=== PATIENT | male | born 1990 | race Caucasian/White ===

== ENCOUNTER 2017-07-17 15:35 | Inpatient (IN) | payer OTHER ==
[2017-07-17 16:08] VITALS: BMI 22.8
--- NOTE | 2017-07-17 17:34 | HP ---
Admission [facility] Allergies/Adverse Reactions: Allergies Allergy/AdvReac Type Severity Reaction Status Date / Time No Known Allergies Allergy Verified 07/17/17 17:04 - Ebola screening Have you traveled outside of the country in the last 21 days: No Have you had contact with anyone from an Ebola affected area: No Have you been sick,other than usual withdrawal symptoms: No Do you have a fever: No Patient History - Patient Medical History Hx Anemia: No Hx Asthma: No Hx Chronic Obstructive Pulmonary Disease (COPD): No Hx Cancer: No Hx Cardiac Disorders: No Hx Congestive Heart Failure: No Hx Hypertension: No Hx Hypercholesterolemia: No Hx Pacemaker: No HX Cerebrovascular Accident: No Hx Seizures: No Hx Dementia: No Hx Diabetes: No Hx Gastrointestinal Disorders: No Hx Liver Disease: No Hx Genitourinary Disorders: No Hx Sexually Transmitted Disorders: No Hx Renal Disease (ESRD): No Hx Thyroid Disease: No Hx Human Immunodeficiency Virus (HIV): No Hx Hepatitis C: No Hx Depression: No Hx Suicide Attempt: No Hx Bipolar Disorder: No Hx Schizophrenia: No - Patient Surgical History Past Surgical History: No Hx Neurologic Surgery: No Hx Cataract Extraction: No Hx Cardiac Surgery: No Hx Lung Surgery: No Hx Breast Surgery: No Hx Breast Biopsy: No Hx Abdominal Surgery: No Hx Appendectomy: No Hx Cholecystectomy: No Hx Genitourinary Surgery: No Hx Section: No Hx Orthopedic Surgery: No Anesthesia Reaction: No - PPD History Previous Implant?: Yes Documented Results: Negative w/o proof Implanted On Prior [facility] Admission?: Yes Date: 06/02/16 - Smoking Cessation Smoking history: Current every day smoker Have you smoked in the past 12 months: Yes Aproximately how many cigarettes per day: 10 Cigars Per Day: 0 Hx Chewing Tobacco Use: No Initiated information on smoking cessation: Yes - Substances Abused Alcohol Route: Oral Frequency: Daily Amount used: 750ML Age of first use: 6 Date of Last Use: 07/16/17 Heroin Route: Injection Frequency: Daily Amount used: 1 BAG Age of first use: 17 Date of Last Use: 07/16/17 Cocaine Route: Injection Frequency: Daily Amount used: 1 BAG Age of first use: 17 Date of Last Use: 07/16/17 Admission Physical Exam S - Vital Signs Vital Signs: Vital Signs - 24 hr 07/17/17 16:03 Temperature 98.3 F Pulse Rate 81 Respiratory 18 Rate Blood Pressure 112/83 - Diagnostic (1) Alcohol dependence with uncomplicated withdrawal Current Visit: Yes Status: Chronic (2) Cocaine dependence Current Visit: Yes Status: Chronic Qualifiers: Substance use status: uncomplicated Qualified Code(s): F14.20 - Cocaine dependence, uncomplicated (3) Marijuana dependence Current Visit: Yes Status: Chronic BHS Breath Alcohol Content Breath Alcohol Content: 0 Urine Drug Screen - Results Drug Screen Negative: No Urine Drug Screen Results: THC-Marijuana, NANDO-Cocaine, OPI-Opiates, MTD- Methadone
--- NOTE | 2017-07-17 20:36 | HP ---
CIWA Score - CIWA Score Nausea/Vomitin-Mild Nausea/No Vomiting Muscle Tremors: 4-Moderate,w/Arms Extend Anxiety: 4-Mod. Anxious/Guarded Agitation: 4-Moderately Restless Paroxysmal Sweats: 1-Minimal Palms Moist Orientation: 0-Oriented Tacttile Disturbances: 0-None Auditory Disturbances: 0-None Visual Disturbances: 0-None Headache: 1-Very Mild CIWA-Ar Total Score: 15 Admission ROS BHS - HPI Chief Complaint: WITHDRAWAL SX Allergies/Adverse Reactions: Allergies Allergy/AdvReac Type Severity Reaction Status Date / Time No Known Allergies Allergy Verified 07/17/17 17:04 History of Present Illness: 27 YEARS OLD MALE WITH LONG HISTORY OF ALCOHOL DEPENDENCE HAS DEPRESSION IS ADMITTED TO DETOX Exam Limitations: No Limitations - Ebola screening Have you traveled outside of the country in the last 21 days: No Have you had contact with anyone from an Ebola affected area: No Have you been sick,other than usual withdrawal symptoms: No Do you have a fever: No - Review of Systems Constitutional: Loss of Appetite, Changes in sleep, Unintentional Wgt. Loss, Unexplained wgt Loss EENT: reports: No Symptoms Reported Respiratory: reports: No Symptoms reported Cardiac: reports: No Symptoms Reported GI: reports: Nausea, Poor Appetite, Abdominal cramping : reports: No Symptoms Reported Musculoskeletal: reports: Back Pain, Joint Pain, Muscle Pain, Neck Pain Integumentary: reports: Change in Color (IV COCAINE INNER ELBOWS) Neuro: reports: Tremors Endocrine: reports: No Symptoms Reported Hematology: reports: No Symptoms Reported Psychiatric: reports: Judgement Intact, Depressed Other Systems: Reviewed and Negative Patient History - Patient Medical History Hx Anemia: No Hx Asthma: No Hx Chronic Obstructive Pulmonary Disease (COPD): No Hx Cancer: No Hx Cardiac Disorders: No Hx Congestive Heart Failure: No Hx Hypertension: No Hx Hypercholesterolemia: No Hx Pacemaker: No HX Cerebrovascular Accident: No Hx Seizures: No Hx Dementia: No Hx Diabetes: No Hx Gastrointestinal Disorders: No Hx Liver Disease: No Hx Genitourinary Disorders: No Hx Sexually Transmitted Disorders: No Hx Renal Disease (ESRD): No Hx Thyroid Disease: No Hx Human Immunodeficiency Virus (HIV): No Hx Hepatitis C: No Hx Depression: Yes Hx Suicide Attempt: No Hx Bipolar Disorder: No Hx Schizophrenia: No - Patient Surgical History Past Surgical History: No Hx Neurologic Surgery: No Hx Cataract Extraction: No Hx Cardiac Surgery: No Hx Lung Surgery: No Hx Breast Surgery: No Hx Breast Biopsy: No Hx Abdominal Surgery: No Hx Appendectomy: No Hx Cholecystectomy: No Hx Genitourinary Surgery: No Hx Orthopedic Surgery: No - PPD History Previous Implant?: Yes Documented Results: Negative w/o proof Implanted On Prior [facility] Admission?: Yes Date: 06/02/16 PPD to be Administered?: Yes - Smoking Cessation Smoking history: Never smoked Have you smoked in the past 12 months: No Aproximately how many cigarettes per day: 0 Cigars Per Day: 0 Hx Chewing Tobacco Use: No Initiated information on smoking cessation: No - Substance & Tx. History Hx Alcohol Use: Yes Hx Substance Use: Yes Substance Use Type: Alcohol, Cocaine, Marijuana Hx Substance Use Treatment: Yes (2015 [facility]) - Substances Abused Alcohol Route: Oral Frequency: Daily Amount used: 750ML VODKA Age of first use: 19 Date of Last Use: 07/16/17 Heroin Route: Injection Frequency: Daily Amount used: 3 BAGS Age of first use: 17 Date of Last Use: 07/14/17 Cocaine Route: Injection Frequency: Daily Amount used: 1 BAG Age of first use: 17 Date of Last Use: 07/16/17 Family Disease History - Family Disease History Family Disease History: Other: Father (NO CONTACT), Mother (NO CONTACT), Brother (NO CONTACT), Sister (NO CONTACT) Admission Physical Exam BHS - Vital Signs Vital Signs: Vital Signs - 24 hr 07/17/17 07/17/17 16:03 17:37 Temperature 98.3 F 97.7 F Pulse Rate 81 80 Respiratory 18 18 Rate Blood Pressure 112/83 112/75 - Physical General Appearance: Yes: Appropriately Dressed, Mild Distress, Thin, Tremorous, Irritable, Sweating, Anxious HEENTM: Yes: Hearing grossly Normal, Normocephalic, Normal Voice Respiratory: Yes: Chest Non-Tender, Lungs Clear, Normal Breath Sounds, No Respiratory Distress, No Accessory Muscle Use Neck: Yes: Supple, Trachea in good position Breast: Yes: Breasts Symetrical Cardiology: Yes: Regular Rhythm, Regular Rate, S1, S2 Abdominal: Yes: Non Tender, Soft, Decreased BS Genitourinary: Yes: Within Normal Limits Back: Yes: Normal Inspection Musculoskeletal: Yes: full range of Motion, Gait Steady, Back pain, Muscle Pain Extremities: Yes: Normal Inspection (IV INNER ELBOWS), Normal Range of Motion, Non-Tender, Tremors Neurological: Yes: Alert, Motor Strength 5/5, Normal Response, Depressed Affect Integumentary: Yes: Warm, Track [place] Lymphatic: Yes: Within Normal Limits - Diagnostic (1) Methadone maintenance therapy patient Current Visit: Yes Status: Chronic Comment: 130 MG PO VERIFICAITON PENDING (2) Depression (emotion) Current Visit: Yes Status: Suspected Qualifiers: Depression Type: dysthymia Qualified Code(s): F34.1 - Dysthymic disorder (3) Alcohol dependence with uncomplicated withdrawal Current Visit: Yes Status: Acute (4) Weight loss Current Visit: Yes Status: Acute Cleared for Admission [facility] - Detox or Rehab [facility] Level of Care: Medically Managed Detox Regimen/Protocol: Librium [facility] Breath Alcohol Content Breath Alcohol Content: 0 Urine Drug Screen - Results Drug Screen Negative: No Urine Drug Screen Results: THC-Marijuana, NANDO-Cocaine, OPI-Opiates, MTD- Methadone
[2017-07-17] MEDS ORDERED: MAGNESIUM HYDROX 2400MG/30ML ORAL SUSPENSION 30 ML CUP PO PRN (20:42)
[2017-07-17] MEDS ORDERED: MAG HYDROX/AL HYDROX/SIMETH 30 ML UNIT-DOSE CUP PO PRN (20:42)
[2017-07-17] MEDS ORDERED: guaiFENesin/D-METHORPHAN HB 10 ML UNIT-DOSE CUPS PO PRN (20:42)
[2017-07-17] MEDS ORDERED: LOPERAMIDE HCL 2 MG CAPSULE PO PRN (20:42)
[2017-07-17] MEDS ORDERED: P-EPHED 60MG/TRIPROLIDI 2.5MG TABLET PO PRN (20:42)
[2017-07-17] MEDS ORDERED: ACETAMINOPHEN 325 MG TABLET (FP) PO PRN (20:42)
[2017-07-17] MEDS ORDERED: MENTHOL/PHENOL 1 EACH UD MM PRN (20:42)
[2017-07-17] MEDS ORDERED: MAGNESIUM CITRATE 300 ML BOTTLE PO PRN (20:42)
[2017-07-17] MEDS: chlordiazePOXIDE HCL 25 MG CAPSULE PO SCH (22:22)
[2017-07-17] MEDS: THIAMINE HCL 100 MG TABLET (FP) PO SCH (22:22)
[2017-07-17 23:23] LABS: URINE APPEARANCE SLCLOUDY; URINE BILIRUBIN NEGATIVE (NEGATIVE); URINE BLOOD NEGATIVE (NEGATIVE); URINE COLOR YELLOW; URINE GLUCOSE (UA) NEGATIVE (NEGATIVE); URINE KETONE NEGATIVE (NEGATIVE); URINE LEUK ESTERASE TRACE (NEGATIVE); URINE NITRITE NEGATIVE (NEGATIVE); URINE PROTEIN NEGATIVE (NEGATIVE)
[2017-07-17 23:33] LABS: URINE MUCUS FEW; URINE RBC 4 /hpf (0-3); URINE WBC 3 /hpf (3-5)
[2017-07-18] MEDS: chlordiazePOXIDE HCL 25 MG CAPSULE PO SCH ×4 (05:58→23:09)
[2017-07-18] MEDS ORDERED: METHADONE HCL 10 MG TABLET PO ONE (08:30)
[2017-07-18] MEDS ORDERED: METHADONE 120 MG, METHADONE 30 MG PO ONE (10:00)
[2017-07-18] MEDS ORDERED: METHADONE HCL 10 MG TABLET ONE (10:04)
[2017-07-18] MEDS ORDERED: METHADONE HCL 40 MG DISPERSABLE TABLET ONE (10:05)
[2017-07-18 10:11] LABS: MCH 28.6 pg (25.7-33.7); MCHC 32.3 g/dl (32.0-35.9); MEAN CELL VOLUME 88.7 fl (80-96); MEAN PLT VOLUME 7.9 fl (7.5-11.1); PLATELET COUNT 253 K/MM3 (134-434); RDW 13.9 % (11.9-15.9); WHITE BLOOD COUNT 7.5 K/mm3 (4.0-10.0)
[2017-07-18 10:15] LABS: URINE LEUK ESTERASE Negative (NEGATIVE)
[2017-07-18] MEDS: PRENATAL VITAMINS W/ FOLIC ACID TABLET (FP) PO SCH (10:22)
[2017-07-18 10:31] LABS: ALBUMIN 3.2 g/dl (3.4-5.0); ALK PHOS 83 U/L (45-117); ANION GAP 9 (8-16); BILIRUBIN,TOTAL 0.5 mg/dL (0.2-1.0); CO2 27 mmol/L (21-32); CREATININE 0.9 mg/dL (0.7-1.3); GLUCOSE,RANDOM 83 mg/dL (74-106); SGOT/AST 42 U/L (15-37); SGPT/ALT 40 U/L (12-78); TOT PROT 6.3 g/dl (6.4-8.2)
--- NOTE | 2017-07-18 11:18 | CONSULT ---
[facility] Psychiatric Consult - Data Date of interview: 07/18/17 Admission source: [facility] Identifying data: Readmission to [facility] for this 27 y/o male seeking detox treatment on for heroin,alcohol,marijuana and cocaine ( crack) dependence.Patient is single without children,homeless,currently unemployed and deprived of any financial support. Substance Abuse History: Confirmed by patient in this session.See current [facility] report for details : Smoking history: Never smoked. Have you smoked in the past 12 months: No. Aproximately how many cigarettes per day: 0. Cigars Per Day: 0. Hx Chewing Tobacco Use: No. Initiated information on smoking cessation : No. - Substance & Tx. History. Hx Alcohol Use: Yes. Hx Substance Use: Yes. Substance Use Type: Alcohol, Cocaine, Marijuana. Hx Substance Use Treatment: Yes (2015 [facility]). - Substances Abused. Alcohol. Route: Oral. Frequency: Daily. Amount used: 750ML VODKA. Age of first use: 19. Date of Last Use: 07/16/17. Heroin. Route: Injection. Frequency: Daily. Amount used: 3 BAGS. Age of first use: 17. Date of Last Use: 07/14/17. Cocaine. Route: Injection. Frequency: Daily. Amount used: 1 BAG. Age of first use: 17. Date of Last Use: 07/16/17 Medical History: Patient endorses good general health. Psychiatric History: History of multiple psychiatric hospitalizations (since age 18).Reportedly diagnosed with " bipolar disorder and schizophrenia ".Mr Roper is known to [facility] in [facility]) and [facility] in [facility] ([facility]Patient used to be prescribed geodon,risperdal,lorazepam,celexa and seroquel.Dropped out of OPD care more than six months ago.He declines to reconsider his decision to abstain from psychotropic medications.No reported history of suicide attempts.Currrently on methadone maintenance (150 mg/day). Physical/Sexual Abuse/Trauma History: Patient denies. Additional Comment: Urine Drug Screen Results: THC-Marijuana, NANDO-Cocaine, OPI- Opiates, MTD-Methadone.Noted. Mental Status Exam - Mental Status Exam Alert and Oriented to: Time, Place, Person Cognitive Function: Good Patient Appearance: Well Groomed Mood: Nervous, Withdrawn Affect: Mood Congruent Patient Behavior: Fatigued, Appropriate, Cooperative Speech Pattern: Clear, Appropriate Voice Loudness: Normal Thought Process: Goal Oriented Thought Disorder: Not Present Hallucinations: Denies Suicidal Ideation: Denies Homicidal Ideation: Denies Insight/Judgement: Poor Sleep: Poorly, Difficulty falling asleep Appetite: Good Muscle strength/Tone: Normal Gait/Station: Normal Psychiatric Findings - Problem List ([place] 1, 2,3) (1) Opioid dependence on agonist therapy Current Visit: Yes Status: Acute (2) Alcohol dependence with uncomplicated withdrawal Current Visit: Yes Status: Acute (3) Cocaine dependence Current Visit: Yes Status: Acute Qualifiers: Substance use status: uncomplicated Qualified Code(s): F14.20 - Cocaine dependence, uncomplicated (4) Marijuana dependence Current Visit: Yes Status: Acute (5) Substance induced mood disorder Current Visit: Yes Status: Acute (6) Schizoaffective disorder Current Visit: No Status: Chronic Comment: Self-report.Non-compliance with OPD care + medications. (7) Insomnia Current Visit: Yes Status: Acute - Initial Treatment Plan Initial Treatment Plan: Psychoeducation.Detoxification.Sleep hygiene discussed in session.Also discussed : risks of non-adherence to medications (relapses, rehospitalizations,suicide attempts,increased morbidity,behavioral dyscontrol) and benefits of treatment (wellness,stability,optimal level of functioning) .Observation.
--- NOTE | 2017-07-18 12:06 | PN ---
S CIWA - CIWA Score Nausea/Vomitin-Int. Nausea w/Dry Heave Muscle Tremors: 4-Moderate,w/Arms Extend Anxiety: 5 Agitation: 2 Paroxysmal Sweats: 3 Orientation: 0-Oriented Tacttile Disturbances: 2-Mild Itch/Numbness/Burn Auditory Disturbances: 0-None Visual Disturbances: 0-None Headache: 0-None Present CIWA-Ar Total Score: 20 BHS Progress Note (SOAP) Subjective: Nausea, Tremors, Sweating, Fatigue, Body Aches. Objective: PT. A & O X 3, OBSERVED AMBULATING ON UNIT. NO ACUTE DISTRESS. 07/18/17 12:05 Vital Signs Temperature 98.1 F 07/18/17 06:05 Pulse Rate 87 07/18/17 09:30 Respiratory Rate 20 07/18/17 09:30 Blood Pressure 112/74 07/18/17 09:30 O2 Sat by Pulse Oximetry (%) Laboratory Tests 07/17/17 07/18/17 07/18/17 23:10 07:00 07:00 WBC 7.5 D RBC 4.71 Hgb 13.5 Hct 41.7 MCV 88.7 MCH 28.6 MCHC 32.3 RDW 13.9 Plt Count 253 D MPV 7.9 Sodium 145 Potassium 3.5 Chloride 109 H Carbon Dioxide 27 Anion Gap 9 BUN 11 Creatinine 0.9 Creat Clearance w eGFR > 60 Random Glucose 83 Calcium 8.0 L Total Bilirubin 0.5 AST 42 H D ALT 40 Alkaline Phosphatase 83 Total Protein 6.3 L Albumin 3.2 L D Urine Color Yellow Urine Appearance Slcloudy Urine pH 6.0 Ur Specific [place] 1.028 Urine Protein Negative Urine Glucose (UA) Negative Urine Ketones Negative Urine Blood Negative Urine Nitrite Negative Urine Bilirubin Negative Urine Urobilinogen 2.0 Ur Leukocyte Esterase Negative Urine WBC (Auto) 3 Urine RBC (Auto) 4 Urine Mucus Few LABS NOTED. RPR RESULT PENDING. 07/18/17 12:06 Assessment: 07/18/17 12:05 WITHDRAWAL SYMPTOMS. Plan: CONTINUE DETOX. INCREASE DAILY PO FLUID INTAKE.
[2017-07-18] MEDS: chlordiazePOXIDE HCL 25 MG CAPSULE PO PRN (15:24)
--- NOTE | 2017-07-18 16:36 | PN ---
[facility] Progress Note Note: Patient reporting several small blisters on bilateral hands that he reports that he has been "picking at and squeezing pus out of for the last few hours." Several small blister noted on bilateral hands. Mild erythema and swelling noted at affected sites; however, no bleeding or unusual discharge noted at time of visual assessment of hands. Bactrim DS PO BID ordered as prophylaxis. Also Bacitracin to be applied to affected areas and covered with band aids BID. Clonidine, 0.1 mg PO X 1 ordered for Detox symptoms, including tremors. Nicol King NP
[2017-07-18] MEDS ORDERED: cloNIDine HCL 0.1 MG TABLET PO ONE (17:15)
--- NOTE | 2017-07-18 19:02 | EKG ---
Test Reason : Blood Pressure : / mmHG Vent. Rate : 069 BPM Atrial Rate : 069 BPM P-R Int : 140 ms QRS Dur : 098 ms QT Int : 422 ms P-R-T Axes : 056 078 028 degrees QTc Int : 452 ms NORMAL SINUS RHYTHM NORMAL ECG WHEN COMPARED WITH ECG OF 17-JUL-2017 22:46, T WAVE INVERSION NO LONGER EVIDENT IN ANTEROLATERAL LEADS Confirmed by MD LAVELL, MIGUEL ([id number]) on 07/18/2017 7:01:31 PM Referred By: Confirmed By:MIGUEL MONTE MD
[2017-07-18] MEDS: IBUPROFEN 400 MG TABLET (FP) PO PRN (23:05)
[2017-07-18] MEDS: SULFAMETHOXAZOLE/TRIMETHOPRIM 800MG/160MG D.S. TABLET PO SCH (23:09)
[2017-07-18] MEDS: THIAMINE HCL 100 MG TABLET (FP) PO SCH (23:09)
[2017-07-18] MEDS: BACITRACIN 0.9 GM PACKET TP SCH (23:09)
[2017-07-19] MEDS ORDERED: METHADONE HCL 10 MG TABLET ONE (04:36)
[2017-07-19] MEDS ORDERED: METHADONE HCL 40 MG DISPERSABLE TABLET ONE (04:37)
[2017-07-19] MEDS: chlordiazePOXIDE HCL 25 MG CAPSULE PO SCH ×3 (05:21→17:55)
[2017-07-19] MEDS ORDERED: METHADONE HCL 10 MG TABLET PO SCH (06:00)
[2017-07-19] MEDS ORDERED: METHADONE 120 MG, METHADONE 30 MG PO SCH (06:00)
[2017-07-19] MEDS: chlordiazePOXIDE HCL 25 MG CAPSULE PO PRN ×3 (08:58→20:48)
--- NOTE | 2017-07-19 09:59 | EKG ---
Test Reason : Blood Pressure : / mmHG Vent. Rate : 087 BPM Atrial Rate : 087 BPM P-R Int : 132 ms QRS Dur : 098 ms QT Int : 368 ms P-R-T Axes : 047 073 010 degrees QTc Int : 442 ms NORMAL SINUS RHYTHM T WAVE ABNORMALITY, CONSIDER ANTEROLATERAL ISCHEMIA ABNORMAL ECG NO PREVIOUS ECGS AVAILABLE Confirmed by MARCOS TESFAYE MD ([id number]) on 07/19/2017 9:58:37 AM Referred By: Confirmed By:MARCOS TESFAYE MD
[2017-07-19] MEDS: PRENATAL VITAMINS W/ FOLIC ACID TABLET (FP) PO SCH (10:29)
[2017-07-19] MEDS: SULFAMETHOXAZOLE/TRIMETHOPRIM 800MG/160MG D.S. TABLET PO SCH ×2 (10:29→22:27)
[2017-07-19] MEDS: BACITRACIN 0.9 GM PACKET TP SCH ×2 (10:29→22:27)
[2017-07-19] MEDS: CYCLOBENZAPRINE HCL 10 MG TABLET (FP) PO PRN ×2 (12:07→22:27)
--- NOTE | 2017-07-19 12:35 | PN ---
[facility] CIWA - CIWA Score Nausea/Vomitin-No Nausea/No Vomiting Muscle Tremors: 6 Anxiety: 5 Agitation: 4-Moderately Restless Paroxysmal Sweats: 2 Orientation: 0-Oriented Tacttile Disturbances: 2-Mild Itch/Numbness/Burn Auditory Disturbances: 0-None Visual Disturbances: 0-None Headache: 0-None Present CIWA-Ar Total Score: 19 BHS Progress Note (SOAP) Subjective: Constipation, Tremors, Anxious, Body Aches. Objective: PT. A & O X 3, OBSERVED AMBULATING ON UNIT. NO ACUTE DISTRESS. 07/19/17 12:33 Vital Signs Temperature 97.5 F L 07/19/17 09:18 Pulse Rate 85 07/19/17 09:18 Respiratory Rate 18 07/19/17 09:18 Blood Pressure 126/76 07/19/17 09:18 O2 Sat by Pulse Oximetry (%) Laboratory Tests 07/17/17 07/18/17 07/18/17 23:10 07:00 07:00 WBC 7.5 D RBC 4.71 Hgb 13.5 Hct 41.7 MCV 88.7 MCH 28.6 MCHC 32.3 RDW 13.9 Plt Count 253 D MPV 7.9 Sodium 145 Potassium 3.5 Chloride 109 H Carbon Dioxide 27 Anion Gap 9 BUN 11 Creatinine 0.9 Creat Clearance w eGFR > 60 Random Glucose 83 Calcium 8.0 L Total Bilirubin 0.5 AST 42 H D ALT 40 Alkaline Phosphatase 83 Total Protein 6.3 L Albumin 3.2 L D Urine Color Yellow Urine Appearance Slcloudy Urine pH 6.0 Ur Specific [place] 1.028 Urine Protein Negative Urine Glucose (UA) Negative Urine Ketones Negative Urine Blood Negative Urine Nitrite Negative Urine Bilirubin Negative Urine Urobilinogen 2.0 Ur Leukocyte Esterase Negative Urine WBC (Auto) 3 Urine RBC (Auto) 4 Urine Mucus Few RPR Titer 07/18/17 07:00 WBC RBC Hgb Hct MCV MCH MCHC RDW Plt Count MPV Sodium Potassium Chloride Carbon Dioxide Anion Gap BUN Creatinine Creat Clearance w eGFR Random Glucose Calcium Total Bilirubin AST ALT Alkaline Phosphatase Total Protein Albumin Urine Color Urine Appearance Urine pH Ur Specific [place] Urine Protein Urine Glucose (UA) Urine Ketones Urine Blood Urine Nitrite Urine Bilirubin Urine Urobilinogen Ur Leukocyte Esterase Urine WBC (Auto) Urine RBC (Auto) Urine Mucus RPR Titer Nonreactive LABS NOTED. Assessment: 07/19/17 12:33 WITHDRAWAL SYMPTOMS. Plan: CONTINUE DETOX. PRN MOM FOR CONSTIPATION. PRN FLEXERIL FOR BODY ACHES / MUSCLE SPASMS. PRN LIBRIUM FOR ANXIETY. INCREASE DAILY PO FLUID INTAKE.
[2017-07-19] MEDS: chlordiazePOXIDE 5 MG CAPSULE PO SCH (22:27)
[2017-07-19] MEDS: THIAMINE HCL 100 MG TABLET (FP) PO SCH (22:27)
[2017-07-20] MEDS: chlordiazePOXIDE 5 MG CAPSULE PO SCH ×3 (05:56→18:09)
[2017-07-20] MEDS: chlordiazePOXIDE HCL 25 MG CAPSULE PO PRN ×2 (06:37→14:50)
[2017-07-20] MEDS ORDERED: METHADONE HCL 10 MG TABLET ONE (08:16)
[2017-07-20] MEDS ORDERED: METHADONE HCL 40 MG DISPERSABLE TABLET ONE (08:17)
[2017-07-20] MEDS ORDERED: METHADONE 120 MG, METHADONE 30 MG PO SCH (10:00)
[2017-07-20] MEDS: SULFAMETHOXAZOLE/TRIMETHOPRIM 800MG/160MG D.S. TABLET PO SCH ×2 (10:56→22:46)
[2017-07-20] MEDS: PRENATAL VITAMINS W/ FOLIC ACID TABLET (FP) PO SCH (10:56)
[2017-07-20] MEDS: BACITRACIN 0.9 GM PACKET TP SCH ×2 (10:56→22:46)
[2017-07-20] MEDS: IBUPROFEN 400 MG TABLET (FP) PO PRN (12:03)
--- NOTE | 2017-07-20 14:58 | PN ---
BHS Progress Note (SOAP) Subjective: Anxious, Tremors, Body Aches, Interrupted Sleep. Objective: PT. A & O X 3, OBSERVED AMBULATING ON UNIT. NO ACUTE DISTRESS. 07/20/17 14:57 Vital Signs Temperature 97.7 F 07/20/17 14:11 Pulse Rate 68 07/20/17 14:11 Respiratory Rate 20 07/20/17 14:11 Blood Pressure 110/68 07/20/17 14:11 O2 Sat by Pulse Oximetry (%) Laboratory Tests 07/17/17 07/18/17 07/18/17 23:10 07:00 07:00 WBC 7.5 D RBC 4.71 Hgb 13.5 Hct 41.7 MCV 88.7 MCH 28.6 MCHC 32.3 RDW 13.9 Plt Count 253 D MPV 7.9 Sodium 145 Potassium 3.5 Chloride 109 H Carbon Dioxide 27 Anion Gap 9 BUN 11 Creatinine 0.9 Creat Clearance w eGFR > 60 Random Glucose 83 Calcium 8.0 L Total Bilirubin 0.5 AST 42 H D ALT 40 Alkaline Phosphatase 83 Total Protein 6.3 L Albumin 3.2 L D Urine Color Yellow Urine Appearance Slcloudy Urine pH 6.0 Ur Specific [place] 1.028 Urine Protein Negative Urine Glucose (UA) Negative Urine Ketones Negative Urine Blood Negative Urine Nitrite Negative Urine Bilirubin Negative Urine Urobilinogen 2.0 Ur Leukocyte Esterase Negative Urine WBC (Auto) 3 Urine RBC (Auto) 4 Urine Mucus Few RPR Titer Hepatitis C Antibody 07/18/17 07/19/17 07:00 15:00 WBC RBC Hgb Hct MCV MCH MCHC RDW Plt Count MPV Sodium Potassium Chloride Carbon Dioxide Anion Gap BUN Creatinine Creat Clearance w eGFR Random Glucose Calcium Total Bilirubin AST ALT Alkaline Phosphatase Total Protein Albumin Urine Color Urine Appearance Urine pH Ur Specific [place] Urine Protein Urine Glucose (UA) Urine Ketones Urine Blood Urine Nitrite Urine Bilirubin Urine Urobilinogen Ur Leukocyte Esterase Urine WBC (Auto) Urine RBC (Auto) Urine Mucus RPR Titer Nonreactive Hepatitis C Antibody 0.2 LABS NOTED. Assessment: 07/20/17 14:57 WITHDRAWAL SYMPTOMS. Plan: CONTINUE DETOX.
[2017-07-20] MEDS: THIAMINE HCL 100 MG TABLET (FP) PO SCH (22:46)
[2017-07-20] MEDS: chlordiazePOXIDE HCL 10 MG CAPSULE PO SCH (22:46)
[2017-07-21 06:35] VITALS: BP 93/70; PULSE 75; TEMP 98.2
[2017-07-21] MEDS: chlordiazePOXIDE HCL 10 MG CAPSULE PO SCH (06:36)
[2017-07-21] MEDS ORDERED: METHADONE HCL 40 MG DISPERSABLE TABLET ONE (08:20)
[2017-07-21] MEDS ORDERED: METHADONE HCL 10 MG TABLET ONE (08:20)
[2017-07-21] MEDS: IBUPROFEN 400 MG TABLET (FP) PO PRN (08:40)
[2017-07-21] MEDS: BACITRACIN 0.9 GM PACKET TP SCH (09:24)
[2017-07-21] MEDS: SULFAMETHOXAZOLE/TRIMETHOPRIM 800MG/160MG D.S. TABLET PO SCH (09:24)
[2017-07-21] MEDS: PRENATAL VITAMINS W/ FOLIC ACID TABLET (FP) PO SCH (09:24)
[2017-07-21] MEDS ORDERED: METHADONE 120 MG, METHADONE 30 MG PO SCH (10:00)
--- NOTE | 2017-07-21 12:47 | DS ---
[facility] Detox Discharge Summary Admission Date: 07/17/17 Discharge Date: 07/21/17 - History Present History: Alcohol Dependence, Cannabis Dependence, Cocaine Dependence, Opioid Dependence, MMTP Additional Comments: PATIENT GOING HOME, WILL RETURN TO [facility] ([place] , [place] FOR AFTERCARE. PATIENT ADVISED TO OBTAIN SERGEANT OF OFFICERS AT [facility] ( [place], [place] TO GO FOR MEDICAL EVALUATION AND FOR WOUNDS AFFECTING BILATERAL HANDS AFTER DISCHARGE FROM DETOX. PRESCRIPTION FOR PO ANTIBIOTIC (BACTRIM DS) AND FOR TOPICAL ANTIBIOTIC (BACITRACIN) SENT TO PATIENT'S PHARMACY ([facility] , [place], [place] FOR AFTERCARE. PATIENT ALSO ADVISED TO CONSIDER LOCAL 12-STEP / NA OUTPATIENT SUPPORT GROUPS FOR AFTERCARE. PATIENT WAS DISCHARGED FROM DETOX UNIT IN STABLE MEDICAL CONDITION. Pertinent Past History: Depression, MMTP, Weight Loss, Insomnia, Schizoaffective Disorder. - Physical Exam Results Vital Signs: Vital Signs Temperature 98.2 F 07/21/17 06:35 Pulse Rate 75 07/21/17 06:35 Respiratory Rate 16 07/21/17 06:35 Blood Pressure 93/70 07/21/17 06:35 O2 Sat by Pulse Oximetry (%) Pertinent Admission Physical Exam Findings: WITHDRAWAL SYMPTOMS. Laboratory Tests 07/17/17 07/18/17 07/18/17 23:10 07:00 07:00 WBC 7.5 D RBC 4.71 Hgb 13.5 Hct 41.7 MCV 88.7 MCH 28.6 MCHC 32.3 RDW 13.9 Plt Count 253 D MPV 7.9 Sodium 145 Potassium 3.5 Chloride 109 H Carbon Dioxide 27 Anion Gap 9 BUN 11 Creatinine 0.9 Creat Clearance w eGFR > 60 Random Glucose 83 Calcium 8.0 L Total Bilirubin 0.5 AST 42 H D ALT 40 Alkaline Phosphatase 83 Total Protein 6.3 L Albumin 3.2 L D Urine Color Yellow Urine Appearance Slcloudy Urine pH 6.0 Ur Specific [place] 1.028 Urine Protein Negative Urine Glucose (UA) Negative Urine Ketones Negative Urine Blood Negative Urine Nitrite Negative Urine Bilirubin Negative Urine Urobilinogen 2.0 Ur Leukocyte Esterase Negative Urine WBC (Auto) 3 Urine RBC (Auto) 4 Urine Mucus Few RPR Titer Hepatitis C Antibody 07/18/17 07/19/17 07:00 15:00 WBC RBC Hgb Hct MCV MCH MCHC RDW Plt Count MPV Sodium Potassium Chloride Carbon Dioxide Anion Gap BUN Creatinine Creat Clearance w eGFR Random Glucose Calcium Total Bilirubin AST ALT Alkaline Phosphatase Total Protein Albumin Urine Color Urine Appearance Urine pH Ur Specific [place] Urine Protein Urine Glucose (UA) Urine Ketones Urine Blood Urine Nitrite Urine Bilirubin Urine Urobilinogen Ur Leukocyte Esterase Urine WBC (Auto) Urine RBC (Auto) Urine Mucus RPR Titer Nonreactive Hepatitis C Antibody 0.2 LABS NOTED. - Treatment Hospital Course: Detox Protocol Followed, Detoxed Safely, Responded well, Discharged Condition Good Patient has Accepted a Rehab Referral to: PT RETURNING TO [facility] ([place], [place] - Medication Discharge Medications: Ambulatory Orders Bacitracin - [Bacitracin Topical Ointment -] 1 applic TP BID #1 tube 07/21/17 Sulfamethoxazole/Trimethoprim [Bactrim Ds -] 1 tab PO BID 7 Days #14 tablet - Diagnosis (1) Alcohol dependence with uncomplicated withdrawal Status: Acute (2) Methadone maintenance therapy patient Status: Chronic (3) Depression (emotion) Status: Suspected Qualifiers: Depression Type: dysthymia Qualified Code(s): F34.1 - Dysthymic disorder (4) Weight loss Status: Acute (5) Insomnia Status: Acute Qualifiers: Insomnia type: unspecified Qualified Code(s): G47.00 - Insomnia, unspecified (6) Substance induced mood disorder Status: Acute (7) Schizoaffective disorder Status: Chronic Qualifiers: Schizoaffective disorder type: unspecified Qualified Code(s): F25.9 - Schizoaffective disorder, unspecified (8) Cocaine dependence Status: Acute Qualifiers: Substance use status: uncomplicated Qualified Code(s): F14.20 - Cocaine dependence, uncomplicated (9) Marijuana dependence Status: Acute - AMA Did Patient Leave Against Medical Advice: No
== END 2017-07-21 09:38 | disposition home or self-care (01) | DRG 773 ==
LOC: YASAS 15:35 → Y3N 17:16
PROVIDERS: ADMIT Internal Medicine; ATTEND Internal Medicine
PROC: HZ2ZZZZ Detoxification Services for Substance Abuse Treatment (ICD-10-PCS; principal; 2017-07-17)
DX: F10.230 Alcohol dependence with withdrawal, uncomplicated (principal); F11.20 Opioid dependence, uncomplicated; F14.20 Cocaine dependence, uncomplicated; F12.20 Cannabis dependence, uncomplicated; F34.1 Dysthymic disorder; F19.24 Other psychoactive substance dependence with psychoactive substance-induced mood disorder; F25.9 Schizoaffective disorder, unspecified; G47.00 Insomnia, unspecified; Z87.898 Personal history of other specified conditions; S60.522A Blister (nonthermal) of left hand, initial encounter; S60.521A Blister (nonthermal) of right hand, initial encounter; X58.XXXA Exposure to other specified factors, initial encounter; Y93.9 Activity, unspecified; Y92.9 Unspecified place or not applicable
CPT/HCPCS: 36415; 80053; 81003; 81015; 85027; 86593; 86803; 93005; 93010

== ENCOUNTER 2023-07-25 13:13 | Inpatient (IN) | payer OTHER ==
[2023-07-25 16:11] VITALS: BMI 23.6
[2023-07-25] MEDS ORDERED: LOPERAMIDE HCL 2 MG CAPSULE PO PRN (17:27)
[2023-07-25] MEDS ORDERED: IBUPROFEN 600 MG TABLET (FP) PO PRN (17:27)
[2023-07-25] MEDS ORDERED: BENZONATATE 200 MG CAPSULE PO PRN (17:27)
[2023-07-25] MEDS ORDERED: BISMUTH SUBSALICYLATE 524 MG/30 ML PO PRN (17:27)
[2023-07-25] MEDS ORDERED: METHOCARBAMOL 500 MG TABLET PO PRN (17:27)
[2023-07-25] MEDS ORDERED: NALOXONE HCL (KLOXXADO) 8 MG SPRAY NS PRN (17:27)
[2023-07-25] MEDS ORDERED: MAGNESIUM HYDROX 2400MG/30ML ORAL SUSPENSION 30 ML CUP PO PRN (17:27)
[2023-07-25] MEDS ORDERED: ONDANSETRON *ODT* 4 MG TABLET SL PRN (17:27)
[2023-07-25] MEDS ORDERED: BENZOCAINE/MENTHOL (CHLORASEPTIC ) LOZENGE MM PRN (17:27)
[2023-07-25] MEDS ORDERED: MAG HYDROX/AL HYDROX/SIMETH 30 ML UNIT-DOSE CUP PO PRN (17:27)
[2023-07-25] MEDS ORDERED: POLYETHYLENE GLYCOL (HEALTHYLAX) 3350 17 GM PACKET PO PRN (17:27)
[2023-07-25] MEDS ORDERED: NICOTINE POLACRILEX 2 MG GUM BUC PRN (17:27)
[2023-07-25] MEDS ORDERED: DICYCLOMINE HCL 10 MG CAPSULE PO PRN (17:27)
[2023-07-25] MEDS ORDERED: NALOXONE HCL 0.4 MG/ML VIAL IM PRN (17:27)
[2023-07-25] MEDS ORDERED: hydrOXYzine PAMOATE 25 MG CAPSULE (FP) PO PRN (17:27)
[2023-07-25] MEDS ORDERED: P-EPHED 60MG/TRIPROLIDI 2.5MG TABLET PO PRN (17:27)
[2023-07-25] MEDS ORDERED: guaiFENesin 600 MG TABLET.ER (FP) PO PRN (17:27)
[2023-07-25] MEDS ORDERED: IBUPROFEN 400 MG TABLET (FP) PO PRN (17:27)
[2023-07-25] MEDS: diazePAM 5 MG TABLET PO PRN (18:31)
[2023-07-25] MEDS: diazePAM 5 MG TABLET PO SCH (18:33)
[2023-07-25] MEDS: THIAMINE HCL 100 MG TABLET (FP) PO SCH (22:28)
[2023-07-25] MEDS: MELATONIN 5 MG TABLETS PO SCH (22:29)
[2023-07-26] MEDS ORDERED: methaDONE HCL 10 MG TABLET PO SCH (09:00)
[2023-07-26] MEDS: PRENATAL VITAMINS W/ FOLIC ACID TABLET (FP) PO SCH (09:34)
[2023-07-26 10:37] LABS: CHLORIDE 103 mmol/L (98-107); POTASSIUM 3.9 mmol/L (3.5-5.1); SODIUM 140 mmol/L (136-145)
[2023-07-26 10:50] LABS: HEMATOCRIT 45.7 % (35.4-49); MCHC 32.8 g/dl (32.0-35.9); MEAN CELL VOLUME 91.7 fl (80-96); MEAN PLT VOLUME 8.1 fl (7.5-11.1); PLATELET COUNT 256 10^3/uL (134-434); RBC 4.99 M/mm3 (4.00-5.60); RDW 13.6 % (11.9-15.9)
[2023-07-26 10:57] LABS: BLOOD UREA NITROGEN 10.8 mg/dL (7-18); GLUCOSE,RANDOM 98 mg/dL (74-106)
[2023-07-26 10:58] LABS: TOT PROT 8.1 g/dl (6.4-8.2)
[2023-07-26 10:59] LABS: SGOT/AST 53 U/L (15-37)
[2023-07-26 11:00] LABS: ALK PHOS 89 U/L (45-117); SGPT/ALT 83 U/L (13-61)
[2023-07-26 11:01] LABS: ANION GAP 8 mmol/L (4-13); CALCIUM 9.4 mg/dL (8.5-10.1); CO2 29 mmol/L (21-32)
[2023-07-26 11:08] LABS: BILIRUBIN,TOTAL 1.2 mg/dL (0.2-1)
[2023-07-26] MEDS: ACETAMINOPHEN 325 MG TABLET (FP) PO PRN (17:04)
[2023-07-27] MEDS: diazePAM 5 MG TABLET PO SCH (05:32)
[2023-07-27 16:34] LABS: HIV INTERPRETATION NEGATIVE (NEGATIVE)
[2023-07-27] MEDS: diazePAM 5 MG TABLET PO ONE (19:18)
[2023-07-28] MEDS: diazePAM 5 MG TABLET PO ONE (05:29)
[2023-07-28 06:46] VITALS: BP 118/69; PULSE 82; RESP 16; TEMP 97.7
== END 2023-07-28 10:38 | disposition home or self-care (01) | DRG 773 ==
LOC: YASAS 13:13 → Y6N 17:25
PROVIDERS: ADMIT Allergy & Immunology; ATTEND Surgery
PROC: HZ2ZZZZ Detoxification Services for Substance Abuse Treatment (ICD-10-PCS; principal; 2023-07-25)
DX: F10.230 Alcohol dependence with withdrawal, uncomplicated (principal); F11.20 Opioid dependence, uncomplicated; F14.20 Cocaine dependence, uncomplicated; F15.10 Other stimulant abuse, uncomplicated; F12.20 Cannabis dependence, uncomplicated; F19.282 Other psychoactive substance dependence with psychoactive substance-induced sleep disorder; F19.280 Other psychoactive substance dependence with psychoactive substance-induced anxiety disorder; F19.24 Other psychoactive substance dependence with psychoactive substance-induced mood disorder; F25.0 Schizoaffective disorder, bipolar type; Z56.0 Unemployment, unspecified; Z59.01 Sheltered homelessness
CPT/HCPCS: 36415; 80053; 80307; 85027; 86780; 87389; 87635; 93005; 93010